=== PATIENT | male | born 2000 | race Caucasian/White ===

== ENCOUNTER 2019-09-09 23:38 | Emergency (ER) | payer OTHER ==
[~2019-09-09] VITALS: Ht 170.2 cm; Wt 63.8 kg
[2019-09-10] MEDS ORDERED: IBUPROFEN 600MG TABLET PO ONE (00:30)
[2019-09-10 00:51] VITALS: BP 134/82
== END 2019-09-10 01:29 | disposition home or self-care (01) ==
LOC: ER 23:38
DX: S09.8XXA Other specified injuries of head, initial encounter (principal); R03.0 Elevated blood-pressure reading, without diagnosis of hypertension; W20.8XXA Other cause of strike by thrown, projected or falling object, initial encounter; Y93.89 Activity, other specified; Y92.89 Other specified places as the place of occurrence of the external cause; Y99.0 Civilian activity done for income or pay
CPT/HCPCS: 99284